=== PATIENT | female | born 1990 | race Hispanic/Latino ===

== ENCOUNTER 2018-06-13 09:45 | Emergency (ER) | payer OTHER ==
[2018-06-13 10:49] LABS: RAPID GROUP A STREP NEGATIVE (NEGATIVE)
== END 2018-06-13 11:01 | disposition home or self-care (01) ==
LOC: EDH 09:45
DX: J01.10 Acute frontal sinusitis, unspecified (principal)
CPT/HCPCS: 87804; 87880

== ENCOUNTER 2019-01-23 08:46 | Emergency (ER) | payer MEDICAID, OTHER | END 2019-01-23 11:15 | disposition home or self-care (01) | LOC: EDH 08:46 | DX: O20.0 Threatened abortion (principal); Z3A.14 14 weeks gestation of pregnancy | CPT/HCPCS: 36415; 76801; 84702; 86900; 86901 ==